=== PATIENT | female | born 1940 | race Caucasian/White ===

== ENCOUNTER → 2024-09-11 08:16 | Outpatient (REF) | payer MEDICARE, OTHER, SELFPAY | LOC: EMG 08:16 | PROVIDERS: ATTENDING PHYSICIAN Orthopaedic Surgery; FAMILY PHYSICIAN Family Medicine | DX: R20.0 Anesthesia of skin (principal); G56.02 Carpal tunnel syndrome, left upper limb | CPT/HCPCS: 95886; 95909 ==